=== PATIENT | female | born 1960 | race African-American/Black ===

== ENCOUNTER 2024-06-17 08:35 | Emergency (ER) | payer OTHER ==
--- OUTSIDE RECORDS SUMMARY | 2024-06-17 08:38 | XMS REPORT | Continuity of Care Document ---
Author Name Unknown Address [address] [place] [address] [facility] Address [address] [place] [address] Care Team Providers Care Plant Guard Name Role Phone TONEYMOISES Brian Primary Care Physician UnavailJunior Fletcher Attending Clinician Bucky sainz RADIOLOGY Attending Clinician Unavailable Radiology Attending Clinician Unavailable 1, [facility] Attending Clinician Real Kiran MD Attending Clinician REAL HAQ Attending Clinician REAL Stallworth Attending Clinician UnavailEDDY Roe Attending Clinician Eddy Hurt MD Attending Clinician [phone] Doctor Unassigned, [place] Attending Clinician U Silvano Garza Admitting Clinician Unavailable JUNIOR CASE Admitting Clinician Unavailalok sainz Payers Payer Name Policy Type Policy Number Effective Date Expirati on Date Source [facility] [id number] 2021 00:00:00 VTM [id number] 2019 00:00:00 Problems Condition Name Condition Details Condition Category Status Onset Date Resolution Date Last Treatment Date Treating Clinician Comments Source No known active problems No known active problems Disease [facility] Allergies, Adverse Reactions, Alerts Allergy Name Allergy Type Status Severity Reaction(s) Onset Date Inactive Date Treating Clinician Comments Source NO KNOWN ALLERGIE S Drug Class Active [facility] Social History Social Habit Start Date Stop Date Quantity Comments Source [facility]2 (event) 2022-04-03 00:00:00 2022-04-13 09:00:00 Not sure [facility] History of Social function 2022-04-13 00:00:00 2022-04-13 00:00:00 [facility] Sex Ass[birth year] At 1960 00:00:00 1960 00:00:00 [facility] Smoking Status Start Date Stop Date Source Tobacco smoking consumption unknown [facility] Medications Ordered Medication Name Filled Medication Name Start Date Stop Date Current Medication? Ordering Clinician Indication Dosage Frequency Signature (SIG) Comments Components Source No known medications 2021-04 09:33: 43 No No known medication s [facility] Vital Signs Vital Name Observation Time Observation Value Comments S esmer Systolic blood pressure 2022-04-13 15:16:00 112 mm[Hg] [facility] Diastolic blood pressure 2022-04-13 15:16:00 77 mm[Hg] [facility] Heart rate 2022-04-13 15:16:00 69 /min [facility] Respiratory rate 2022-04-13 15:16:00 17 /min [facility] Body height 2022-04-13 15:16:00 154.9 cm [facility] Body weight 2022-04-13 15:16:00 90.266 kg [facility] BMI 2022-04-13 15:16:00 37.60 kg/m2 [facility] Procedures Procedure Date / Time Performed Performing Clinicia n Source MR LUMBAR SPINE WO CONTRAST 2023-08-29 20:24:56 Requisition, Paper [facility] SLEEP STUDY 2023-08-24 17:47:21 Doctor Unass igned, [place] [facility] CONSENT/REFUSAL FOR DIAGNOSIS AND TREATMENT 2022-04-13 14:58:36 Doctor Unassigned, [place] [facility] Encounters Start Date/Time End Date/Time Encounter Type Admission Type Attending Clinicians Care Facility Care Department Encounter ID Source 2024-06-04 16:19:03 Outpatient Junior Case [facility] [id number] 2023-08-29 14:43:22 2023-08-29 23:59:00 Outpatient R RADIOLOGY [facility] [id number] [facility] 2023-08-29 14:43:22 2023-08-29 23:59:00 Hospital Encounter Radiology [facility] [id number] [facility] 2023-08-27 20:00:00 2023-08-27 22:30:00 Cyber Policy And Strategy Planner Visit 1, [facility] Sleep Lab Bed Real Haq [facility] 1..114 [id number] [facility] 2023-08-27 20:00:00 2023-08-27 20:00:00 Outpatient R REAL HAQ STRARIDomi [facility] [id number] [facility] 2022-04-27 00:00:00 2022-04-27 00:00:00 Outpatient R EDDY GARCIA [facility] [id number] [facility] 2022-04-13 09:15:00 2022-04-13 09:50:09 Office Visit Eddy Garcia [facility] [id number] [facility] 2022-04-13 09:15:00 2022-04-13 09:50:09 Outpatient R EDDY GARCIA [facility] [id number] [facility] 2022-04-13 00:00:00 2022-04-13 00:00:00 Orders Only Doctor Unassigned, [place] [facility] [id number] [facility] Results Test Description Test Time Test Comments Results Resul t Comments Source MR LUMBAR SPINE WO CONTRAST 1 21:19:42 EXAM: MR LUMBAR SPINE WO CONTRAST HISTORY: Low back pain and right sided sciatica. COMPARISON: none TECHNIQUE: Multiplanar and multisequence MRI imaging of the lumbar spinewas obtained without contrast. FINDINGS: Numbering assumes 5 lumbar type vertebra. There is normal lumbar lordosisand sagittal alignment. The vertebral body heights are preserved.Intraosseou s hemangioma is incidentally seen in the L2 vertebral body andleft sacral nathan. The spinal cord terminates at L1. The distal cord isunremarkable. L1-L2: No spinal canal or neural foraminal stenosis. L2-L3: No spinal canal or neural foraminal stenosis. L3-L4: No spinal canal or neural foraminal stenosis. At L4-L5: Bilateral facet arthropathy with a disc bulge and ligamentumflavum thickening. Lrhy-ca-tgltuwtb spinal canal stenosis and mildbilateral neural foraminal narrowing. L5-S1: Severe left facet arthropathy. No spinal canal or neural foraminalstenosis. [facility] SLEEP STUDY 2023-07-31 6 17:47:21 Ordered by an unspecified provider. [facility]
[2024-06-17] MEDS ORDERED: HYDROCODONE/CHLORPHEN 5 ML/OSYR ONE (09:02)
[2024-06-17] MEDS ORDERED: prednisoLONE 15 MG/5 ML OSYR ONE (09:02)
--- NOTE | 2024-06-17 10:46 | RAD REPORT ---
Procedure: Chest Single View HISTORY: Cough COMPARISON: none FINDINGS: The lungs appear clear of acute infiltrate. No significant pleural effusion noted. The heart is normal size. IMPRESSION: No acute abnormality is displayed.
[2024-06-17 10:58] LABS: Absolute Basophils 0.1 K/uL (0-0.5); Absolute Eosinophils 0.1 K/uL (0-0.5); Absolute Lymphocytes (CBC) 2.2 K/uL (0.7-4.9); Absolute Monocytes 0.4 K/uL (0.1-1.3); Absolute Neutrophil 5.1 K/uL (1.8-8.0); Basophils % 0.8 % (0-1.3); Eosinophils % 1.6 % (0-4.4); Hematocrit 48.3 % (36.0-45.0); Hemoglobin 16.3 g/dL (12.0-15.0); Lymphocytes % 28.4 % (15.3-44.8); MCH 32.7 pg (27.0-35.0); MCHC 33.7 g/dL (32.0-36.0); MCV 97.1 fL (80-100); MPV 7.9 fL (7.6-11.3); Monocytes % 4.8 % (3.3-12.3); Neutrophils % 64.4 % (41.7-73.7); Nucleated Red Blood Cells % 0.1 % (0-0); Platelets 303 thou/uL (152-406); RBC Red Blood Cell Count 4.98 M/uL (3.86-4.86); Red Cell Distribution Width 13.4 % (12.1-15.2)
[2024-06-17 11:15] LABS: Anion Gap 6.7 mEq/L (5.0-15.0); BUN Blood Urea Nitrogen 11 mg/dL (7-18); Bicarbonate 28 mEq/L (21-32); Glomerular Filtration Rate 99 ml/min (=/>90); Glucose Level 130 mg/dL (74-106); NT PRO-BNP 19 pg/mL (<125); Potassium 3.7 mEq/L (3.5-5.1); Sodium Level 138 mEq/L (136-145)
[2024-06-17 11:17] LABS: Troponin High Sensitivity < 3.0 pg/mL (<58.9)
--- NOTE | 2024-06-17 11:20 | ER ---
Nurse's Notes [facility] Name: Danita James Age: 64 yrs Sex: Female : 1960 Arrival Date: 06/17/2024 Time: 08:35 Bed 17 Private MD: Diagnosis: Unspecified asthma, uncomplicated;Cough Presentation: 06/17 08:54 Chief complaint: Patient states: cough X 2 weeks, worse today. Coronavirus screen: iw Client presents with at least one sign or symptom that may indicate coronavirus-19. Ebola Screen: No symptoms or risks identified at this time. Initial Sepsis Screen: Does the patient meet any 2 criteria? No. Patient's initial sepsis screen is negative. Does the patient have a suspected source of infection? No. Patient's initial sepsis screen is negative. Risk Assessment: Do you want to hurt yourself or someone else? Patient reports no desire to harm self or others. Onset of symptoms was June 03, 2024. 08:54 Method Of Arrival: Ambulatory 08:54 Acuity: LUCIA 4 iw Historical: - Allergies: 08:55 PENICILLINS; iw - PMHx: 09:08 None; ld1 - Immunization history:: Adult Immunizations up to date. - Infectious Disease History:: Denies. - Family history:: not pertinent. - Social history:: Smoking status: Patient denies any tobacco usage or history of. - Hospitalizations: : No recent hospitalization is reported. Screenin:[address] [facility] ED Fall Risk Assessment (Adult) History of falling in the last 3 months, ld1 including since admission No falls in past 3 months (0 pts) Confusion or Disorientation No (0 pts) Intoxicated or Sedated No (0 pts) Impaired Gait No (0 pts) Mobility Assist Device Used No (0 pt) Altered Elimination No (0 pt) Score/Fall Risk Level 0 - 2 = Low Risk Oriented to surroundings, Hourly rounding (assess needs \T\ fall precautionary measures) done. Abuse screen: Denies threats or abuse. Denies injuries from another. Nutritional screening: No deficits noted. Tuberculosis screening: No symptoms or risk factors identified. Assessment: 09:07 General: Appears in no apparent distress. comfortable, Behavior is calm, cooperative, ld1 appropriate for age. Pain: Denies pain. Neuro: Level of Consciousness is awake, alert, obeys commands, Oriented to person, place, time, situation, Appropriate for age. Cardiovascular: Capillary refill < 3 seconds Patient's skin is warm and dry. Respiratory: Reports cough that is non-productive, pain with cough Airway is patent Respiratory effort is even, unlabored, Onset: The symptoms/episode began/occurred yesterday, the patient has moderate shortness of breath. Respiratory: Breath sounds with wheezes bilaterally. GI: Abdomen is flat, non-distended. : No signs and/or symptoms were reported regarding the genitourinary system. EENT: No signs and/or symptoms were reported regarding the EENT system. Derm: No signs and/or symptoms reported regarding the dermatologic system. Musculoskeletal: No signs and/or symptoms reported regarding the musculoskeletal system. 11:15 Reassessment: Patient appears in no apparent distress at this time. Patient and/or hb family updated on plan of care and expected duration. Pain level reassessed. Patient is alert, oriented x 3, equal unlabored respirations, skin warm/dry/pink. Vital Signs: 08:54 BP 130 / 74; Pulse 72; Resp 19; Temp 97.6; Pulse Ox 97% on R/A; Weight 86.18 kg; Height iw 5 ft. 1 in. ; 09:07 BP 123 / 80; Pulse 59; Resp 18; Pulse Ox 94% on R/A; ld1 10:52 BP 118 / 72; Pulse 61; Resp 15; Pulse Ox 95% on R/A; Pain 0/10; hb 11:15 BP 119 / 78; Pulse 74; Resp 15; Pulse Ox 97% on R/A; hb 08:54 Body Mass Index 35.90 (86.18 kg, 154.94 cm) iw 10:52 Pain Scale: Adult hb ED Course: 08:45 Patient arrived in ED. im 08:48 Antonio Faith MD is Attending Physician. rn 08:55 Triage completed. iw 08:58 Luzmaria Remy, JOSE is Primary Nurse. ld1 09:08 Patient has correct armband on for positive identification. Placed in gown. Bed in low ld1 position. Call light in reach. Side rails up X2. Pulse ox on. NIBP on. Door closed. Noise minimized. Warm blanket given. 09:08 No provider procedures requiring assistance completed. ld1 09:30 Arm band placed on. hb 10:13 XRAY Chest (1 view) In Process Unspecified. EDMS 10:50 Initial lab(s) drawn, by me, sent to lab. Inserted saline lock: 20 gauge in right hb antecubital area, using aseptic technique. Blood collected. Flushed with 10 mL NS. 11:15 Provided Education on: medications, return precautions, follow up. hb 11:15 IV discontinued, intact, bleeding controlled, No redness/swelling at site. Pressure hb dressing applied. 11:19 Antonio Faith MD is Referral Physician. rn 11:19 Referral Physician role handed off by Antonio Faith MD rn Administered Medications: 09:06 Drug: prednisoLONE PO Liquid 60 mg PO once Route: PO; ld1 09:06 Drug: Tussionex Pennkinetic ER PO Suspension 5 ml PO once Route: PO; ld1 Medication: 09:08 VIS not applicable for this client. ld1 Outcome: 11:15 Discharged to home ambulatory, hb 11:15 Condition: stable 11:15 Discharge instructions given to patient, Instructed on discharge instructions, follow up and referral plans. medication usage, Demonstrated understanding of instructions, follow-up care, medications, Prescriptions given X 3, 11:20 Discharge ordered by . rn 11:46 Patient left the ED. Signatures: Dispatcher [employer] EDMS Nat Colindres RN RN Antonio Faith MD MD rn Baxter, Heather, RN RN Luzmaria Remy RN RN ld1 Lynette Graf Corrections: (The following items were deleted from the chart) 08:59 08:54 BP 130 / 74; Pulse 72bpm; Resp 19bpm; Pulse Ox 97% RA; 86.18 kg; Height 5 ft. 1 iw in.; BMI: 35.9; iw
--- NOTE | 2024-06-17 11:20 | EDPHYS ---
Physician Documentation [facility] Name: Danita James Age: 64 yrs Sex: Female : 1960 Arrival Date: 06/17/2024 Time: 08:35 Bed 17 Private MD: ED Physician Antonio Faith HPI: 06/17 09:14 This 64 yrs old Black Female presents to ER via Ambulatory with complaints of Cough. rn 09:14 The patient or guardian reports cough. Onset: The symptoms/episode began/occurred 2 rn week(s) ago. Severity of symptoms: At their worst the symptoms were mild, in the emergency department the symptoms are unchanged. Modifying factors: The symptoms are alleviated by nebulizer treatment, the symptoms are aggravated by nothing. The patient has experienced similar episodes in the past. Patient reports cough, dry cough, for 2 weeks. No fever or chills. Reports improves with albuterol nebulizer but over the last 2 days not helping. No hemoptysis. There was no trauma. Patient not sure if she has a diagnosis of asthma. Denies any chronic lung or heart problems but uses nebulizer when needed.. Historical: - Allergies: 08:55 PENICILLINS; iw - PMHx: 09:08 None; ld1 - Immunization history:: Adult Immunizations up to date. - Infectious Disease History:: Denies. - Family history:: not pertinent. - Social history:: Smoking status: Patient denies any tobacco usage or history of. - Hospitalizations: : No recent hospitalization is reported. ROS: 09:14 Constitutional: Negative for fever, chills, and weight loss, Cardiovascular: Negative rn for chest pain, palpitations, and edema, Respiratory: Positive for cough Abdomen/GI: Negative for abdominal pain, nausea, vomiting, diarrhea, and constipation, MS/Extremity: Negative for injury and deformity, Neuro: Negative for headache, weakness, numbness, tingling, and seizure, Exam: 09:14 Constitutional: This is a well developed, well nourished patient who is awake, alert, rn and in no acute distress. Cardiovascular: Regular rate and rhythm. No pulse deficits. Respiratory: Mild tachypnea. Diminished at bases. Abdomen/GI: Soft, non-tender MS/ Extremity: Pulses equal, no cyanosis. Neurovascular intact. Full, normal range of motion. Equal circumference. Neuro: Awake and alert, GCS 15 Vital Signs: 08:54 BP 130 / 74; Pulse 72; Resp 19; Temp 97.6; Pulse Ox 97% on R/A; Weight 86.18 kg; Height iw 5 ft. 1 in. ; 09:07 BP 123 / 80; Pulse 59; Resp 18; Pulse Ox 94% on R/A; ld1 10:52 BP 118 / 72; Pulse 61; Resp 15; Pulse Ox 95% on R/A; Pain 0/10; hb 11:15 BP 119 / 78; Pulse 74; Resp 15; Pulse Ox 97% on R/A; hb 08:54 Body Mass Index 35.90 (86.18 kg, 154.94 cm) iw 10:52 Pain Scale: Adult hb MDM: 08:48 Medical Screening Exam initiated rn 11:19 Differential Diagnosis: Bronchitis Upper Respiratory Infection Viral Syndrome Pneumonia rn Other pulmonary edema, pneumonia. Data reviewed: vital signs, nurses notes, lab test result(s), radiologic studies, plain films, and as a result, I will discharge patient. Counseling: I had a detailed discussion with the patient and/or guardian regarding the historical points, exam findings, and any diagnostic results supporting the discharge/admit diagnosis, lab results, radiology results, the need for outpatient follow up, to return to the emergency department if symptoms worsen or persist or if there are any questions or concerns that arise at home. Special discussion: I discussed with the patient/guardian in detail that at this point there is no indication for admission to the hospital. It is understood, however, that if the symptoms persist or worsen the patient needs to return immediately for re-evaluation. 06/17 10:35 Order name: CBC with Diff; Complete Time: 11:18 rn 06/17 10:35 Order name: Basic Metabolic Panel; Complete Time: 11:18 rn 06/17 10:35 Order name: BNP; Complete Time: 11:18 rn 06/17 10:35 Order name: Troponin High Sensitivity; Complete Time: 11: rn 06/17 08:48 Order name: XRAY Chest (1 view); Complete Time: 10:46 rn 06/17 10:35 Order name: IV Start; Complete Time: 10:50 rn Administered Medications: 09:06 Drug: prednisoLONE PO Liquid 60 mg PO once Route: PO; ld1 09:06 Drug: Tussionex Pennkinetic ER PO Suspension 5 ml PO once Route: PO; ld1 Disposition Summary: 06/17/24 11:20 Discharge Ordered Notes: Location: Home rn Problem: an ongoing problem rn Symptoms: have improved rn Condition: Stable rn Diagnosis - Unspecified asthma, uncomplicated rn - Cough rn Followup: rn - With: Private Physician - When: As needed - Reason: Recheck today's complaints, Re-evaluation by your physician Discharge Instructions: - Discharge Summary Sheet rn - Asthma, Adult rn - Cough, Adult rn Forms: - Medication Reconciliation Form rn - Antibiotic patternmaker metal - Prescription Opioid Use rn - Patient Portal Instructions rn - Leadership Thank You Letter rn Prescriptions: - Prednisone 20 mg Oral Tablet - take 3 tablets ORAL route once daily for 5 days; 15 tablet; Refills: 0, Product rn Selection Permitted - Albuterol Sulfate 2.5 mg /3 mL (0.083 %) Inhalation Solution for Nebulization - inhale 1 unit NEBULIZATION route every 8 hours As needed; 1 Pack; Refills: 0, rn Product Selection Permitted - Zithromax Z-Thad 250 mg Oral Tablet - take 1 tablet ORAL route as directed for 5 days Day 1 - take two (2) tablets rn one time. Day 2, 3, 4 , 5 take one (1) tablet once daily.; 6 tablet; Refills: 0, Product Selection Permitted Signatures: Dispatcher [employer] Nat Diego, RN Antonio Jensen MD MD rn Sims, Lauren, RN RN ld1 Corrections: (The following items were deleted from the chart) 10:36 10:36 Troponin High Sensitivity+C.LAB.BRZ ordered. ED EDMS
[2024-06-17 12:22] VITALS: TEMP 97.6
[2024-06-17 12:26] VITALS: BP 119/78; O2SAT 97
== END 2024-06-17 11:46 | disposition home or self-care (01) ==
LOC: ER 08:35
DX: J45.909 Unspecified asthma, uncomplicated (principal)
CPT/HCPCS: 85025; 80048; 36415; 84484; 83880; 71045; J7510